=== PATIENT | female | born 1935 | race Caucasian/White ===

== ENCOUNTER → 2016-10-22 | Outpatient (CLI) | payer MEDICARE ==
--- NOTE | 2016-10-22 12:26 | XR ---
EXAMINATION TYPE: XR panorex DATE OF EXAM ORDERED: 10/22/2016 HISTORY: H92.01 Otalgia, right ear. COMPARISON: None. FINDINGS: There are multiple dental amalgams. There have been multiple previous root canals on the l eft. No bony destructive lesion is seen. The temporomandibular joints appear reasonably well-maintain ed. IMPRESSION: 1. EVIDENCE OF PREVIOUS DENTAL WORK. 2. NO ACUTE OSSEOUS LESION.
== END | disposition home or self-care (01) ==
LOC: RADXRMAIN 11:27
PROVIDERS: ATTEND Otolaryngology
DX: H92.09 Otalgia, unspecified ear (principal); M26.609 Unspecified temporomandibular joint disorder, unspecified side
CPT/HCPCS: 70355

== ENCOUNTER → 2018-10-26 | Outpatient (CLI) | payer MEDICARE ==
[2018-10-26 10:48] LABS: HCT 42.8 % (34.0-46.0); HGB 13.9 gm/dL (11.4-16.0); MCH 29.4 pg (25.0-35.0); MCHC 32.4 g/dL (31.0-37.0); MCV 90.6 fL (80.0-100.0); Mean Platelet Volume 6.1; Platelet Count 308 k/uL (150-450); RBC 4.73 m/uL (3.80-5.40); RDW 13.3 % (11.5-15.5)
[2018-10-26 10:50] LABS: Appearance,Urine Clear (Clear); Bilirubin,Urine Negative (Negative); Blood,Urine Negative (Negative); Color,Urine Light Yellow; Glucose,Urine (UA) Negative (Negative); Ketones,Urine Negative (Negative); Leukocyte Esterase,Urine Negative (Negative); Nitrite,Urine Negative (Negative); PH, Urine 7.5 (5.0-8.0); Protein,Urine Negative (Negative); Specific Gravity,Urine 1.007 (1.001-1.035); Urobilinogen,Urine <2.0 mg/dL (<2.0)
[2018-10-26 10:51] LABS: Prothrombin Time 10.6 sec (9.0-12.0)
[2018-10-26 10:57] LABS: ALT 23 U/L (9-52); AST 29 U/L (14-36); African American GFR (CKD) >90 (>60 ml/min/1.73 sqM); Albumin 4.5 g/dL (3.5-5.0); Alkaline Phosphatase 93 U/L (38-126); Anion Gap 8 mmol/L; Blood Urea Nitrogen 12 mg/dL (7-17); Calcium 9.6 mg/dL (8.4-10.2); Carbon Dioxide 29 mmol/L (22-30); Chloride 96 mmol/L (98-107); Glucose 91 mg/dL (74-99); Potassium 3.9 mmol/L (3.5-5.1); Sodium 133 mmol/L (137-145); Total Bilirubin 0.4 mg/dL (0.2-1.3); Total Protein 7.7 g/dL (6.3-8.2)
== END | disposition home or self-care (01) ==
LOC: LABPAT 09:27
PROVIDERS: ATTEND Orthopaedic Surgery
DX: Z01.810 Encounter for preprocedural cardiovascular examination (principal); Z01.812 Encounter for preprocedural laboratory examination; Z79.01 Long term (current) use of anticoagulants
CPT/HCPCS: 36415; 80053; 81003; 85027; 85610; 85730; 87070; 93005

== ENCOUNTER 2018-11-01 11:30 | Inpatient (IN) | payer MEDICARE ==
[2018-10-25 10:54] VITALS: BMI 22.3
[~2018-11-01 11:30] MED LIST: ACETAMINOPHEN TAB 500 MG TAB PO ONE; DEXAMETHASONE SOD PHOSPHATE 10 MG/ML 1 ML VIAL IV ONE; DIAZEPAM 5 MG TAB PO PRN; HYDROcodone/APAP 5-325MG 1 EACH TAB PO PRN; HYDROmorphone 0.5 MG/0.5 ML SYRINGE IVP PRN; LACTATED RINGERS 1,000 ML IV SCH; MAGNESIUM HYDROXIDE 2,400 MG/10 ML CUP PO PRN; MELOXICAM 7.5 MG TAB PO ONE; MIDAZOLAM 2 MG/2 ML VIAL IV PRN; NALOXONE 0.4 MG/ML 1 ML VIAL IV PRN; ONDANSETRON 4 MG/2 ML VIAL IVP ONE; ONDANSETRON 4 MG/2 ML VIAL IVP PRN; ROPIVACAINE 246.25 MG, EPINEPHrine 0.5 MG, KETOROLAC 30 MG, cloNIDine HCL/PF 80 MCG, WA... MISCELLANE ONE; TRANEXAMIC ACID 1,000 MG in SODIUM CHLORIDE 0.9% 100 ML IVPB ONE; ceFAZolin IN SWFI 2 GM/20 ML SYRINGE IVP ONE; hydrOXYzine PAMOATE 25 MG CAP PO PRN
[2018-11-01] MEDS ORDERED: LIDOCAINE 1% 20 ML VIAL (10MG/ML) FOR IV START INTRADERMA ONE (12:00)
[2018-11-01] MEDS ORDERED: HEPARIN SODIUM,PORCINE 10,000 UNIT/ML 1 ML VIAL ONE (13:31)
[2018-11-01] MEDS ORDERED: LIDOCAINE 1% INJ 10MG/ML (20 ML MDV) ONE (13:31)
[2018-11-01] MEDS ORDERED: SODIUM CHLORIDE 0.9% IRRIG 1,000 ML BTL IRRIGATION ONE (13:31)
[2018-11-01] MEDS ORDERED: PROPOFOL 10 MG/ML 20 ML VIAL IV ONE (13:31)
[2018-11-01] MEDS ORDERED: MIDAZOLAM 2 MG/2 ML VIAL ONE (13:31)
[2018-11-01] MEDS ORDERED: ceFAZolin 3,000 MG in SODIUM CHLORIDE 0.9% IRRIGATIO 3,000 ML IRRIGATION ONE (13:35)
[2018-11-01] MEDS ORDERED: LACTATED RINGERS 1,000 ML IV ONE (14:00)
--- NOTE | 2018-11-01 14:59 | FL ---
EXAMINATION TYPE: FL guidance operating room, XR Hip Limited LT DATE OF EXAM: 11/01/2018 CLINICAL HISTORY: Left hip osteoarthritis and pain. TECHNIQUE: Fluoroscopy. Limited intraoperative views left hip. COMPARISON: None. FINDINGS: Fluoroscopic guidance was provided during left hip replacement procedure performed by Dr. Benito. A total of 30 seconds of fluoroscopic time was utilized during the procedure and 2 spot in traoperative images are acquired. Images acquired show metallic hardware from total hip arthroplasty that is satisfactory in position o n single frontal projection. IMPRESSION: As Above.
--- NOTE | 2018-11-01 15:01 | P.OP ---
Date of Procedure: 11/01/18 Preoperative Diagnosis: Severe osteoarthritis left hip Postoperative Diagnosis: Severe osteoarthritis left hip Procedure(s) Performed: Left total hip arthroplasty with a direct anterior approach Implants: Eason and nephew Polarstem size 1 standard Eason [employer] Nephew R3, 3 hole acetabular shell, 48 mm Eason [employer] Nephew reflection 6.5 mm cancellus screw, 20 mm 2 Eason [employer] Nephew R3, XLPE 20 acetabular liner Eason & Nephew Oxinium femoral head 32 mm, -3 All components were press-fit. The articulation is Oxinium on polyethylene. Anesthesia: spinal Surgeon: Skip Benito Senior Bioinformatics Specialist #1: Ivette Javier Estimated Blood Loss (ml): 350 (134 mL returned with Cell Saver) Pathology: other (Femoral head) Condition: stable Disposition: PACU Indications for Procedure: After failure of conservative treatment we discussed the surgical and nonsurgical treatment options at length. Patient wishes to proceed with a total hip arthroplasty with a direct anterior approach. Complications specific to this procedure were discussed at length, including but not limited to infection, leg length discrepancy, dislocation, and nerve injury. Patient is aware of all these complications and informed consent was obtained Operative Findings: The operative findings are consistent with severe osteoarthritis of the left hip Description of Procedure: Patient was seen and evaluated in the preoperative area, consent was reviewed, and the surgical site was marked with a skin marker. Patient was then brought to the operating room and given prophylactic antibiotics intravenously. 1 g of Tranexamic acid was also given. A spinal anesthetic was administered by the anesthesia department. The patient was then placed on the [place] table with the bony prominences well-padded. The hip area was then prepped and draped in usual sterile fashion. A universal timeout was then performed, which confirmed the patient's name, surgical site, ALLERGIES, and procedure being performed. Next the incision site was located at 1 cm distal and 1 cm lateral to the anterior superior iliac spine. The skin and subcutaneous tissues were sharply incised. Incision was carefully dissected down to the fascia overlying the tensor fascia jeff muscle. This fascia was then incised in line with the incision. Next, using blunt finger dissection, the tensor fascia jeff muscle was dissected off its investing fascia. The muscle was then carefully retracted laterally with a cobra retractor over the lateral neck of the femur. Next, the circumflex vessels were identified and cauterized using the AquaMantis device. The anterior hip capsule was then exposed. The capsule was then opened and an inverted T fashion. Cobra retractors were then placed intracapsularly. The proximal femur was then vi sualized. The femoral neck was then osteotomized appropriate level above the lesser trochanter. Small amount of traction was placed with the [place] table. A small wedge of bone was then removed from the remaining femoral head. Next, using a corkscrew femoral head was easily removed from the acetabulum. On gross visual inspection, the femoral head had complete loss of articular cartilage in mult iple periarticular osteophytes. Attention was then turned to the acetabulum. the acetabulum was exposed and any remaining labrum was excised. Sequential reaming of the acetabulum was performed using fluoroscopic guidance. When the appropriate size was reached, a trial was then placed. The position and fit of the trial was checked with fluoroscopy. The trial was then removed. Then, using fluoroscopic guidance, the final implant was impacted at 20 of anteversion and 40 of abduction, and fully seated in the acetabulum. 2 screws were then placed in the acetabulum. Again fluoroscopy was used to check position of the screws. Next, the liner was then impacted, with a 20 elevated liner located in the anterior superior quadrant. Component locking was confirmed. Attention was then directed to the femur. With the aid of the [place] table, the femur was externally rotated to approximately 130, extended, and abducted under the opposite leg. A side hook was then placed under the proximal femur, and the side hook elevator was used to elevate the proximal femur. Retractors were then placed. A capsular release was performed, as well as a release of the conjoined tendon, which afforded excellent visualization of the proximal femur. Next, a box osteotome was used to lateralize the proximal femur. A hand profiler was then used to locate the femoral canal. Sequential broaching was then performed with appropriate size which afforded excellent fixation in the proximal femur. A trial was then placed with appropriate head and neck, and the hip was gently reduced with the aid of the [place] table. Fluoroscopy was then used to check position of the components, as well as to ensure equal leg lengths. The hip was then gently dislocated and the trials were then removed. Final implants were then impacted and the hip was again reduced. Final fluoroscopic x-rays confirmed that the components were in anatomic position, as well as equal leg lengths. The hip was also taken through range of motion, and found to be stable. The hip was then copiously irrigated with antibiotic solution with pulsatile lavage. The hip was then irrigated with Irrisept solution. The soft tissues we re then injected with a ropivacaine solution, which consisted of 246.25 mg of ropivacaine, 0.5 mg of epinephrine, 30 mg of Toradol, 80 g of clonidine, and 48.45 mL of sterile water, for a total of 100 mL of fluid injected. A second dose of 1 g of Tranexamic acid was also given. the fascia was then closed with 2-0 strata fix suture. The subcutaneous tissue was closed with 3-0 Vicryl. The subcuticular tissue was closed with 3-0 strata fix suture. The skin was then closed with Dermabond glue and a sterile silver dressing. The patient was then transferred to the recovery room in stable cond ition. The assistant dean of students MATTHEW Pandya was required due to the complexity of surgery, and the need for skilled surgical lead for positioning, draping, exposure, retraction, and closure of the wound.
--- NOTE | 2018-11-01 15:28 | XR ---
EXAMINATION TYPE: XR Hip Limited LT DATE OF EXAM: 11/01/2018 CLINICAL HISTORY: Left hip pain and osteoarthritis. TECHNIQUE: Single AP portable view of left hip is obtained immediately postoperatively. COMPARISON: None. FINDINGS: Metallic hardware from left hip arthroplasty is seen and appears satisfactory in alignment and position. There is evidence of recent surgery with subcutaneous gas noted laterally. IMPRESSION: Metallic hardware from left hip arthroplasty is satisfactory in position.
[2018-11-01] MEDS: SODIUM CHLORIDE 0.9% 1,000 ML IV SCH (17:15)
[2018-11-01] MEDS ORDERED: hydrALAZINE HCL 25 MG TAB PO STA (20:50)
[2018-11-01] MEDS ORDERED: SENNOSIDES-DOCUSATE SODIUM 1 EACH TAB PO SCH (21:00)
[2018-11-01] MEDS: ASPIRIN 325 MG TAB PO SCH (21:25)
[2018-11-01] MEDS: HYDROcodone/APAP 5-325MG 1 EACH TAB PO PRN (21:29)
[2018-11-02] MEDS: ceFAZolin IN SWFI 2 GM/20 ML SYRINGE IVP SCH ×2 (00:05→05:30)
[2018-11-02] MEDS: SODIUM CHLORIDE 0.9% 1,000 ML IV SCH (02:12)
[2018-11-02 07:59] LABS: Basophils % (A) 0 %; Eosinophils # (A) 0.1 k/uL (0-0.7); Eosinophils % (A) 1 %; HCT 35.7 % (34.0-46.0); Lymphocytes % (A) 25 %; MCH 29.8 pg (25.0-35.0); MCHC 33.5 g/dL (31.0-37.0); MCV 89.1 fL (80.0-100.0); Mean Platelet Volume 6.7; Monocytes # (A) 0.5 k/uL (0-1.0); Monocytes % (A) 6 %; Neutrophils # (A) 5.4 k/uL (1.3-7.7); Neutrophils % (A) 66 %; Platelet Count 204 k/uL (150-450); RBC 4.01 m/uL (3.80-5.40); WBC 8.1 k/uL (3.8-10.6)
[2018-11-02 08:31] VITALS: BP 159/64; PULSE 70; RESP 16; TEMP 98.2
[2018-11-02] MEDS ORDERED: ANASTROZOLE 1 MG TAB PO SCH (09:00)
[2018-11-02] MEDS ORDERED: NON-FORMULARY DRUG (Turmeric Root Extract [Turmeric] 500 MG) PO SCH (09:00)
[2018-11-02] MEDS ORDERED: NON-FORMULARY DRUG (Magnesium Oxide [Phillips] 500 MG) PO SCH (09:00)
[2018-11-02] MEDS ORDERED: BISOPROLOL-HCTZ 2.5-6.25 MG 1 EACH TAB PO SCH (09:00)
[2018-11-02] MEDS ORDERED: MELOXICAM 7.5 MG TAB PO SCH (09:00)
[2018-11-02] MEDS: ASPIRIN 325 MG TAB PO SCH (09:10)
[2018-11-02] MEDS: HYDROcodone/APAP 5-325MG 1 EACH TAB PO PRN (09:11)
--- NOTE | 2018-11-02 09:28 | P.DS ---
Providers Date of admission: 11/01/18 11:30 Expected date of discharge: 11/02/18 Attending physician: Skip Benito Consults: 11/01/18 09:30 Consult Physician Routine Consulting Provider: Jabier Benjamin Reason/Comments: medical management Do you want consulting provider notified?: Yes Primary care physician: Pravin Stafford - Discharge Diagnosis(es) (1) Osteoarthritis of left hip Current Visit: Yes Status: Acute (2) Status post total hip replacement, left Current Visit: Yes Status: Acute Hospital Course: This is a 83-year-old female with known history of degenerative arthritis of the left hip. The patient presents for evaluation. After discussion and consideration patient elects to proceed with total hip arthroplasty. The patient is seen preoperatively by Dr. Benito and medically cleared for surgery by their primary care physician. Patient is admitted to [facility] on 11/01/2018 for total hip arthroplasty. The procedures performed without complication or sequelae. The patient is doing well postoperatively. Labs and vital signs are stable on day of discharge. On day of discharge patient's hip incision is healing well. There is minimal erythema. There is no drainage noted at this time. There is minimal soft tissue swelling to the hip and thigh. Patient has full foot and ankle motion without difficulty or pain. Calf is soft and nontender to palpation. N eurovascular status to the left lower extremity is intact. Patient is discharged home in good condition. Opioid start talking form is reviewed and signed at patient bedside. Please see med rec for accurate list of home medications. Plan - Discharge Summary Discharge Rx Participant: No New Discharge Prescriptions: New Aspirin 325 mg PO BID tab Aspirin 325 mg PO BID #60 tab HYDROcodone/APAP 5-325MG [[place] 5-325] 1 - 2 tab PO Q6HR PRN #56 tab PRN Reason: Pain Sennosides [Senokot] 1 tab PO BID #60 tablet Continue Anastrozole [Arimidex] 1 mg PO DAILY Bisoprol/Hydrochlorothiazide [Ziac 2.5-6.25 MG] 1 tab PO DAILY Ibuprofen [Advil] 600 mg PO Q8HR PRN PRN Reason: Pain Turmeric Root Extract [Turmeric] 500 mg PO DAILY Acetaminophen [Tylenol Extra Strength] 1,000 mg PO Q6HR PRN PRN Reason: Pain Stool Softner 1 tab PO DAILY Magnesium Oxide [Fatima] 500 mg PO DAILY Discharge Medication List Acetaminophen [Tylenol Extra Strength] 1,000 mg PO Q6HR PRN 10/25/18 [History] Anastrozole [Arimidex] 1 mg PO DAILY 10/25/18 [History] Bisoprol/Hydrochlorothiazide [Ziac 2.5-6.25 MG] 1 tab PO DAILY 10/25/18 [History] Ibuprofen [Advil] 600 mg PO Q8HR PRN 10/25/18 [History] Magnesium Oxide [Fatima] 500 mg PO DAILY 10/25/18 [History] Stool Softner 1 tab PO DAILY 10/25/18 [History] Turmeric Root Extract [Turmeric] 500 mg PO DAILY 10/25/18 [History] Aspirin 325 mg PO BID tab 11/02/18 [Rx] Aspirin 325 mg PO BID #60 tab 11/02/18 [Rx] HYDROcodone/APAP 5-325MG [[place] 5-325] 1 - 2 tab PO Q6HR PRN #56 tab 11/02/18 [Rx] Sennosides [Senokot] 1 tab PO BID #60 tablet 11/02/18 [Rx] Follow up Appointment(s)/Referral(s): Skip Benito DO [Doctor of Osteopathic Medicine] - 11/15/18 2:00 pm Pravin Stafford MD [Primary Care Provider] - 1 Week Activity/Diet/Wound Care/Special Instructions: Weightbearing as tolerated with walker. Leave dressing intact. Dressing may be removed by home care nurse or by patient in 10 days. May shower with dressing on. Please follow-up with [facility] in 2 weeks and call with any questions or concerns, . Discharge Disposition: HOME WITH HOME HEALTH SERVICES
--- NOTE | 2018-11-02 14:32 | P.CONS ---
History of Present Illness - Reason for Consult Consult date: 11/02/18 Medical management - History of Present Illness This is an 83-year-old female patient of Dr. Pravin Stafford with past medical history of hypertension, hyperlipidemia, breast cancer status post right breast lumpectomy, osteoarthritis. Patient gives history of having trouble with her left knee due to osteoarthritis for several years and gradually worsening. She has been brought in under the care of Dr. Skip Benito status post left total hip arthroplasty. Patient is seen in post op day #1. Surgery was an anterior approach. She states that her pain is currently well controlled. She does complain of a backache and some numbness to her left thigh. Patient did have elevated blood pressure readings last night and hydralazine oral 1 was administered. This morning blood pressure is 159/64. White count 8.1 and hemoglobin 12. Patient is scheduled to work with physical therapy and if doing well will be discharged home today. We will not send the patient home with new blood pressure medication. Review of Systems All systems: negative Constitutional: Denies chills, Denies fatigue, Denies fever, Denies lethargy, Denies malaise, Denies poor appetite, Denies weight loss Eyes: denies blurred vision, denies pain Ears, nose, mouth and throat: Denies dysphagia, Denies headache, Denies nasal congestion, Denies nasal discharge, Denies sore throat, Denies vertigo Cardiovascular: Reports high blood pressure, Denies chest pain, Denies decreased exercise tolerance, Denies dyspnea on exertion, Denies edema, Denies leg edema, Denies lightheadedness, Denies orthopnea, Denies shortness of breath, Denies syncope Respiratory: Denies cough, Denies cough with sputum, Denies dyspnea, Denies excessive sputum, Denies hemoptysis, Denies home oxygen, Denies wheezing Gastrointestinal: Denies abdominal pain, Denies diarrhea, Denies loss of appetite, Denies nausea, Denies vomiting Genitourinary: Denies dysuria, Denies hematuria, Denies urgency, Denies urinary frequency Musculoskeletal: Denies frequent falls, Denies gait dysfunction, Denies muscle weakness, Denies myalgias Integumentary: Reports wounds, Denies pruritus, Denies rash Neurological: Denies aphasia, Denies change in mentation, Denies change in speech, Denies numbness, Denies seizures, Denies syncope, Denies weakness Psychiatric: Denies anxiety, Denies depression Endocrine: Denies fatigue, Denies weight change Past Medical History Past Medical History: Cancer, Hyperlipidemia, Hypertension, Osteoarthritis (OA) Additional Past Medical History / Comment(s): hx migraines, occ. palpitations, hx ulcer, hemorrhoids, breast cancer, surgery left eye for retina pucker History of Any Multi-Drug Resistant Organisms: None Reported Past Surgical History: Breast Surgery, Heart Catheterization, Hernia Repair, Hysterectomy, Tonsillectomy Additional Past Surgical History / Comment(s): rt breast lumpectomy, og cataracts, ANTERIOR TOTAL LEFT HIP ARTHROPLASTY 11-01-2018 Past Anesthesia/Blood Transfusion Reactions: Motion Sickness, Postoperative Nausea & Vomiting (PONV) Past Psychological History: No Psychological Hx Reported Smoking Status: Former smoker Past Alcohol Use History: None Reported Additional Past Alcohol Use History / Comment(s): quit smoking 1979, smoked for 25 yrs, >1 PPD. No illicit drug use, no alcohol use. Patient worked as a homemaker. She is currently and daughter is visiting her in the immediate postoperative time. Past Drug Use History: None Reported - Past Family History Mother Family Medical History: Cancer Additional Family Medical History / Comment(s): Mother in 83 from cancer. Father Additional Family Medical History / Comment(s): Father at age 73 from coronary artery disease with history of emphysema. Brother(s) Additional Family Medical History / Comment(s): The patient has a total of 5 siblings. One brother has from pancreatic cancer and one sisters from ovarian cancer. Patient has 2 children with no major medical problems. Medications and Allergies Home Medications Medication Instructions Recorded Confirmed Type Acetaminophen [Tylenol Extra 1,000 mg PO Q6HR PRN 10/25/18 11/01/18 History Strength] Anastrozole [Arimidex] 1 mg PO DAILY 10/25/18 11/01/18 History Bisoprol/Hydrochlorothiazide [Ziac 1 tab PO DAILY 10/25/18 11/01/18 History 2.5-6.25 MG] Magnesium Oxide [Fatima] 500 mg PO DAILY 10/25/18 11/01/18 History Stool Softner 1 tab PO DAILY 10/25/18 11/01/18 History Turmeric Root Extract [Turmeric] 500 mg PO DAILY 10/25/18 11/01/18 History Aspirin 325 mg PO BID tab 11/02/18 Rx Aspirin 325 mg PO BID #60 tab 11/02/18 Rx HYDROcodone/APAP 5-325MG [[place] 1 - 2 tab PO Q6HR PRN #56 tab 11/02/18 Rx 5-325] Sennosides [Senokot] 1 tab PO BID #60 tablet 11/02/18 Rx Allergies Allergy/AdvReac Type Severity Reaction Status Date / Time carbenicillin Allergy Itching Verified 11/01/18 16:37 [From [facility]] Physical Exam Vitals: Vital Signs Temp Pulse Pulse Pulse Pulse Resp BP 11/02/18 07:00 98.2 F 70 16 11/02/18 01:03 97.8 F 65 17 115/40 11/02/18 00:08 18 110/50 11/01/18 21:52 124/65 11/01/18 19:42 98.0 F 66 18 164/56 11/01/18 18:45 82 144/79 11/01/18 18:30 83 144/78 11/01/18 16:00 68 172/73 11/01/18 15:50 57 L 16 145/65 11/01/18 15:45 68 175/82 11/01/18 15:35 73 16 159/66 11/01/18 15:30 62 176/80 11/01/18 15:20 67 16 11/01/18 15:15 71 142/72 11/01/18 15:05 70 16 131/58 11/01/18 15:00 61 155/69 11/01/18 14:45 63 176/69 11/01/18 14:30 97.3 F L 66 12 178/74 11/01/18 11:48 98.3 F 68 16 BP BP Pulse Ox 11/02/18 07:00 159/64 93 L 11/02/18 01:03 91 L 11/02/18 00:08 11/01/18 21:52 11/01/18 19:42 93 L 11/01/18 18:45 11/01/18 18:30 11/01/18 16:00 11/01/18 15:50 95 11/01/18 15:45 11/01/18 15:35 96 11/01/18 15:30 06/17/19 15:20 145/64 98 11/01/18 15:15 11/01/18 15:05 98 11/01/18 15:00 11/01/18 14:45 11/01/18 14:30 98 11/01/18 11:48 120/74 95 Intake and Output 11/01/18 11/02/18 11/02/18 22:59 06:59 14:59 Intake Total 0 520 Balance 0 520 Intake: IV 0 Intake, IV Titration 520 Amount Sodium Chloride 0.9% 1, 520 000 ml @ 65 mls/hr IV . [id number] SILVINO Rx#:[id number] Other: # Voids 1 2 Gen: This is an 83-year-old female. She is resting in a recliner appears to be in no acute distress. HEENT: Head is atraumatic, normocephalic. Pupils equal, round. Sclerae is anicteric. NECK: Supple. No JVD. No lymphadenopathy. No thyromegaly. LUNGS: Clear to auscultation. No wheezes or rhonchi. No intercostal retractions. HEART: Regular rate and rhythm. No murmur. ABDOMEN: Soft. Bowel sounds are present. No masses. No tenderness. EXTREMITIES: No pedal edema. No calf tenderness. Equal strength to bilateral lower extremities. Dorsalis pedis +2 bilaterally. On to left hip shows no signs of significant drainage, redness, or bleeding. NEUROLOGICAL: Patient is awake, alert and oriented x3. Cranial nerves 2 through 12 are grossly intact. Results CBC & Chem 7: 11/02/18 07:07 Assessment and Plan Plan: 1. Osteoarthritis status post left total hip arthroplasty. Patient is on aspirin 325 mg twice daily for DVT prophylaxis. Continue current pain management, PT OT. Patient is tentatively scheduled for discharge home today. 2. Hypertension. Continue Ziac 1 tablet daily. 3. Glaucoma. Continue eyedrops. 4. Hyperlipidemia. Discharge plan: home Impression and plan of care have been directed as dictated by the signing physician. Sandrine Mae nurse practitioner acting as scribe for signing physician.
== END 2018-11-02 11:30 | disposition home health service (06) | DRG 470 ==
LOC: 2CATHESU 11:30 → 4SSUR 15:05
PROVIDERS: ADMIT Orthopaedic Surgery; ATTEND Orthopaedic Surgery
PROC: 30233N0 Transfusion of Autologous Red Blood Cells into Peripheral Vein, Percutaneous Approach (ICD-10-PCS; 2018-11-01)
PROC: 0SRB06A Replacement of Left Hip Joint with Oxidized Zirconium on Polyethylene Synthetic Substitute, Uncemented, Open Approach (ICD-10-PCS; principal; 2018-11-01 12:30)
DX: M16.12 Unilateral primary osteoarthritis, left hip (principal); I10 Essential (primary) hypertension; E78.2 Mixed hyperlipidemia; G43.909 Migraine, unspecified, not intractable, without status migrainosus; K64.9 Unspecified hemorrhoids; F41.9 Anxiety disorder, unspecified; M54.12 Radiculopathy, cervical region; M54.16 Radiculopathy, lumbar region; H40.9 Unspecified glaucoma; Z79.811 Long term (current) use of aromatase inhibitors; Z79.82 Long term (current) use of aspirin; Z79.899 Other long term (current) drug therapy; Z90.710 Acquired absence of both cervix and uterus; Z87.891 Personal history of nicotine dependence; Z85.3 Personal history of malignant neoplasm of breast; Z98.42 Cataract extraction status, left eye; Z98.41 Cataract extraction status, right eye; Z96.1 Presence of intraocular lens; Z98.51 Tubal ligation status; Z88.1 Allergy status to other antibiotic agents; Z80.0 Family history of malignant neoplasm of digestive organs; Z80.41 Family history of malignant neoplasm of ovary; Z82.49 Family history of ischemic heart disease and other diseases of the circulatory system; Z82.5 Family history of asthma and other chronic lower respiratory diseases; Z80.3 Family history of malignant neoplasm of breast
CPT/HCPCS: 73501; 85025; 86850; 86891; 86900; 86901

== ENCOUNTER 2020-11-14 18:03 | Emergency (ER) | payer MEDICARE ==
[2020-11-14 18:31] VITALS: TEMP 98
--- NOTE | 2020-11-14 19:40 | ED ---
Fall HPI - General Chief Complaint: Fall Stated Complaint: Fall Time Seen by Provider: 11/14/20 18:39 Source: patient Mode of arrival: ambulatory - History of Present Illness Initial Comments: Patient is a pleasant 85-year-old female who presents the ER today for evaluation of right shoulder and arm pain, patient reports that earlier today she was walking when she tripped over the edging in her yard. She fell forward, onto an outstretched right hand. She has pain in her right shoulder. Patient does report she has chronic pain in the shoulder she was seen by orthopedics kiah larios and had a steroid injection into the shoulder which did not improve her pain. Patient states she may have struck her head on the dirt but did not lose consciousness she has no signs of external head trauma. - Related Data Home Medications Medication Instructions Recorded Confirmed Bisoprol/Hydrochlorothiazide [Ziac 1 tab PO DAILY 10/25/18 11/14/20 2.5-6.25 MG] Cholecalciferol [Vitamin D3 (25 25 mcg PO DAILY 11/14/20 11/14/20 Mcg = 1000 Iu)] Ibuprofen [Motrin Ib] 600 mg PO Q8H PRN 11/14/20 11/14/20 Allergies Allergy/AdvReac Type Severity Reaction Status Date / Time carbenicillin Allergy Itching Verified 11/14/20 19:39 [From [facility]] Review of Systems ROS Statement: Those systems with pertinent positive or pertinent negative responses have been documented in the HPI. ROS Other: All systems not noted in ROS Statement are negative. Past Medical History Past Medical History: Cancer, Hyperlipidemia, Hypertension, Osteoarthritis (OA) Additional Past Medical History / Comment(s): hx migraines, occ. palpitations, hx ulcer, hemorrhoids, breast cancer, surgery left eye for retina pucker History of Any Multi-Drug Resistant Organisms: None Reported Past Surgical History: Breast Surgery, Heart Catheterization, Hernia Repair, Hysterectomy, Tonsillectomy Additional Past Surgical History / Comment(s): rt breast lumpectomy, og cataracts, ANTERIOR TOTAL LEFT HIP ARTHROPLASTY 11-01-2018 Past Anesthesia/Blood Transfusion Reactions: Motion Sickness, Postoperative Nausea & Vomiting (PONV) Past Psychological History: No Psychological Hx Reported Smoking Status: Never smoker Past Alcohol Use History: None Reported Past Drug Use History: None Reported - Past Family History Mother Family Medical History: Cancer Additional Family Medical History / Comment(s): Mother in 83 from cancer. Father Additional Family Medical History / Comment(s): Father at age 73 from coronary artery disease with history of emphysema. Brother(s) Additional Family Medical History / Comment(s): The patient has a total of 5 siblings. One brother has from pancreatic cancer and one sisters from ovarian cancer. Patient has 2 children with no major medical problems. General Exam - General Exam Comments Initial Comments: Physical Exam GENERAL: Patient is well-developed and well-nourished. Patient is nontoxic and well-hydrated and is in no distress. HENT: Normocephalic, Atraumatic. EYES: PERRL, EOMI PULMONARY: Unlabored respirations. CARDIOVASCULAR: RRR Warm and well perfused extremities ABDOMEN: Non-distended SKIN: No rashes or bruising : Deferred NEUROLOGIC: Alert and oriented Normal speech MUSCULOSKELETAL: Decreased range of motion of the right shoulder secondary to pain PSYCHIATRIC: No SI/HI Limitations: no limitations Course Vital Signs 11/14/20 11/14/20 18:30 20:23 Temperature 98 F Pulse Rate 71 64 Respiratory 16 18 Rate Blood Pressure 171/71 160/78 O2 Sat by Pulse 95 91 L Oximetry Medical Decision Making - Medical Decision Making Patient was seen x-rays are obtained there are no acute fractures patient was notified of these findings comfortable plan for discharge home with supportive care continued outpatient follow-up with orthopedics for chronic arm pain Disposition Clinical Impression: Fall Disposition: HOME SELF-CARE Condition: Stable Instructions (If sedation given, give patient instructions): Fall Prevention (ED) Is patient prescribed a controlled substance at d/c from ED?: No Referrals: Pravin Stafford MD [Primary Care Provider] - 1-2 days Daryl Benito DO [Doctor of Osteopathic Medicine] - 1-2 days
--- NOTE | 2020-11-14 20:11 | XR ---
Result: Clinical History: Pain status post fall. Comparison: None available. Technique: 3 views of the right shoulder. 2 views of the right humerus. Findings: The bone mineralization is appropriate for age. No acute fracture or dislocation of the right shoulder or humerus is seen. There is mild to moderate osteoarthritis of the acromioclavicular joint. Subcentimeter calcific density adjacent to the greate r tuberosity, suggestive of rotator cuff calcific tendinopathy. Impression: No acute osseous abnormality of the right shoulder or humerus.
[2020-11-14 20:25] VITALS: BP 160/78; PULSE 64; RESP 18
== END 2020-11-14 20:41 | disposition home or self-care (01) ==
LOC: EC 18:03
DX: M25.511 Pain in right shoulder (principal); I10 Essential (primary) hypertension; Z88.0 Allergy status to penicillin; Z79.899 Other long term (current) drug therapy; W01.0XXA Fall on same level from slipping, tripping and stumbling without subsequent striking against object, initial encounter; Y93.01 Activity, walking, marching and hiking
CPT/HCPCS: 99283

== ENCOUNTER 2024-05-05 11:52 | Emergency (ER) | payer MEDICARE ==
--- NOTE | 2024-05-05 13:07 | XR ---
EXAMINATION TYPE: XR chest 2V DATE OF EXAM: 05/05/2024 12:52 PM COMPARISON: Chest radiographs from TECHNIQUE: XR chest 2V . CLINICAL INDICATION:Female, 88 years old with history of altered mental status; FINDINGS: Lungs/Pleura: No pneumothorax. Elevation of the right hemidiaphragm. No pleural effusion. Right basil ar airspace opacity. Pulmonary vascularity: Unremarkable. Heart/mediastinum: Cardiomediastinal silhouette is enlarged. Atherosclerotic calcifications are seen in the aorta. Musculoskeletal: Multiple level degenerative disc disease changes seen throughout the spine. IMPRESSION: Right basilar airspace opacity concerning for possible pneumonia with underlying mass not excluded. C ontinued follow-up is recommended. [facility], , 05/05/2024 1:05 PM
[2024-05-05 13:11] LABS: Basophils % (A) 0 %; Eosinophils # (A) 0.1 k/uL (0-0.7); Eosinophils % (A) 2 %; HCT 41.7 % (34.0-46.0); HGB 13.7 gm/dL (11.4-16.0); Lymphocytes # (A) 2.3 k/uL (1.0-4.8); Lymphocytes % (A) 32 %; MCH 29.4 pg (25.0-35.0); MCHC 32.7 g/dL (31.0-37.0); MCV 89.7 fL (80.0-100.0); Mean Platelet Volume 6.5; Monocytes # (A) 0.3 k/uL (0-1.0); Monocytes % (A) 5 %; Neutrophils # (A) 4.2 k/uL (1.3-7.7); Neutrophils % (A) 59 %; Platelet Count 271 k/uL (150-450); RBC 4.65 m/uL (3.80-5.40); RDW 13.4 % (11.5-15.5); WBC 7.1 k/uL (3.8-10.6)
[2024-05-05 13:21] LABS: INR 0.9 (<1.2); Partial Thromboplastin Time 23.6 sec (22.0-30.0); Prothrombin Time 10.6 sec (10.0-12.5)
[2024-05-05 13:25] LABS: ALT 14 U/L (4-34); AST 24 U/L (14-36); African American GFR (CKD) >90 (>60 ml/min/1.73 sqM); Albumin 4.4 g/dL (3.5-5.0); Alkaline Phosphatase 96 U/L (38-126); Anion Gap 7 mmol/L; Blood Urea Nitrogen 17 mg/dL (7-17); Calcium 9.8 mg/dL (8.4-10.2); Carbon Dioxide 27 mmol/L (22-30); Chloride 101 mmol/L (98-107); Creatine Kinase 96 U/L (30-135); Glucose 103 mg/dL (74-99); Non-African American GFR(CKD) 80 (>60 ml/min/1.73 sqM); Potassium 4.1 mmol/L (3.5-5.1); Sodium 135 mmol/L (137-145); Total Bilirubin 0.5 mg/dL (0.2-1.3); Total Protein 7.6 g/dL (6.3-8.2)
--- NOTE | 2024-05-05 14:05 | ED ---
General Adult HPI - General Chief complaint: Neuro Symptoms/Deficit Stated complaint: Face Numbness Time Seen by Provider: 05/05/24 12:05 Source: patient, family Mode of arrival: ambulatory Limitations: no limitations - History of Present Illness Initial comments: 88-year-old female presents to the emergency department for 1 week of slurred sp eech, right hand weakness and difficulty swallowing. States that over the past week she has had issues writing. Daughter states that she has very nice penmanship but the writing does not look at all like her mother's. She has had some slurred speech and occasional expressive aphasia. Denies balance issues. No weakness in her leg. Does admit to a headache graded 2 out of 10. Patient has a history of hypertension. States she has been taking her blood pressure medications as instructed. No nausea or vomiting. No history of strokes. No other alleviating, precipitating or modifying factors - Related Data Home Medications Medication Instructions Recorded Confirmed Bisoprolol/Hydrochlorothiazide 1 tab PO DAILY 10/25/18 11/14/20 [Ziac 2.5-6.25 MG] Cholecalciferol [Vitamin D3 (25 25 mcg PO DAILY 11/14/20 11/14/20 Mcg = 1000 Iu)] Ibuprofen [Motrin Ib] 600 mg PO Q8H PRN 11/14/20 11/14/20 Allergies Allergy/AdvReac Type Severity Reaction Status Date / Time carbenicillin Allergy Itching Verified 11/14/20 19:39 [From Geocillin] Review of Systems ROS Statement: Those systems with pertinent positive or pertinent negative responses have been documented in the HPI. ROS Other: All systems not noted in ROS Statement are negative. Past Medical History Past Medical History: Cancer, Hyperlipidemia, Hypertension, Osteoarthritis (OA) Additional Past Medical History / Comment(s): hx migraines, occ. palpitations, hx ulcer, hemorrhoids, breast cancer, surgery left eye for retina pucker History of Any Multi-Drug Resistant Organisms: None Reported Past Surgical History: Breast Surgery, Heart Catheterization, Hernia Repair, Hysterectomy, Tonsillectomy Additional Past Surgical History / Comment(s): rt breast lumpectomy, og cataracts, ANTERIOR TOTAL LEFT HIP ARTHROPLASTY 11-01-2018 Past Anesthesia/Blood Transfusion Reactions: Motion Sickness, Postoperative Nausea & Vomiting (PONV) Past Psychological History: No Psychological Hx Reported Smoking Status: Never smoker Past Alcohol Use History: None Reported Past Drug Use History: None Reported - Past Family History Mother Family Medical History: Cancer Additional Family Medical History / Comment(s): Mother in 83 from cancer. Father Additional Family Medical History / Comment(s): Father at age 73 from coronary artery disease with history of emphysema. Brother(s) Additional Family Medical History / Comment(s): The patient has a total of 5 siblings. One brother has from pancreatic cancer and one sisters from ovarian cancer. Patient has 2 children with no major medical problems. General Exam Limitations: no limitations General appearance: alert, in no apparent distress Head exam: Present: atraumatic, normocephalic, normal inspection Eye exam: Present: normal appearance, PERRL, EOMI. Absent: scleral icterus, conjunctival injection, periorbital swelling ENT exam: Present: mucous membranes moist, other (Flattening of the right nasolabial fold) Neck exam: Present: normal inspection. Absent: tenderness, meningismus, lymphadenopathy Respiratory exam: Present: normal lung sounds bilaterally. Absent: respiratory distress, wheezes, rales, rhonchi, stridor Cardiovascular Exam: Present: regular rate, normal rhythm, normal heart sounds. Absent: systolic murmur, diastolic murmur, rubs, gallop, clicks GI/Abdominal exam: Present: soft, normal bowel sounds. Absent: distended, tenderness, guarding, rebound, rigid Extremities exam: Present: normal inspection, full ROM, normal capillary refill. Absent: tenderness, pedal edema, joint swelling, calf tenderness Back exam: Present: normal inspection Neurological exam: Present: alert, oriented X3, CN II-XII intact, other (Mild dysarthria) Psychiatric exam: Present: normal affect, normal mood Skin exam: Present: warm, dry, intact, normal color. Absent: rash Course Vital Signs 05/05/24 05/05/24 05/05/24 11:53 13:08 13:39 Temperature 97.8 F Pulse Rate 71 57 L Respiratory 20 61 H 16 Rate Blood Pressure 225/85 187/74 171/69 O2 Sat by Pulse 96 97 97 Oximetry 05/05/24 05/05/24 14:15 14:31 Temperature Pulse Rate 77 73 Respiratory 18 16 Rate Blood Pressure 160/63 148/61 O2 Sat by Pulse Oximetry - Reevaluation(s) Reevaluation #1: Patient accepted by Dr. Clarke 05/05/24 14:45 Medical Decision Making - Medical Decision Making Was pt. sent in by a medical professional or institution (, PA, [employer], urgent care, hospital, or shelter...) When possible be specific @ -No Did you speak to anyone other than the patient for history (EMS, parent, family, police, friend...)? What history was obtained from this source @ -Spoke with the daughter for history Did you review nursing and triage notes (agree or disagree)? Why? @ -I reviewed and agree with nursing and triage notes Were old charts reviewed (outside hosp., previous admission, EMS record, old EKG, old radiological studies, urgent care reports/EKG's, shelter records)? Report findings @ -No old charts were reviewed Differential Diagnosis (chest pain, altered mental status, abdominal pain women, abdominal pain men, vaginal bleeding, weakness, fever, dyspnea, syncope, headache, dizziness, GI bleed, back pain, seizure, CVA, palpatations, mental health, musculoskeletal)? @ -Differential CVA Ischemic stroke, hemorrhagic stroke, brain tumor, atypical migraine, Wernicke's encephalopathy, seizure, multiple sclerosis, meningitis, encephalitis, hypoglycemia, Guillain-Zepeda, electrolytes disturbance, myasthenia gravis.... This is not meant to be an all-inclusive list EKG interpreted by me (3pts min.). @ -Yes and demonstrates sinus rhythm with a rate of 70. CT interval 146. QRS 98. QTc of 431. No acute ST segment elevations or depressions X-rays interpreted by me (1pt min.). @ -yes and demonstrates right basilar infiltrate CT interpreted by me (1pt min.). @ -CT demonstrates acute patchy region of hemorrhage within the superior right cerebellum with surrounding edema. Additional questionable region within the midline cerebellum. Causes effacement of the fourth ventricle. No hydrocephalus. Stroke versus underlying neoplasm. Focal region of hypodensity within the right parietal lobe with cortical hyperdensity suggesting blood products and/or laminar necrosis. U/S interpreted by me (1pt. min.). @ -None done What testing was considered but not performed or refused? (CT, X-rays, U/S, labs)? Why? @ -None What meds were considered but not given or refused? Why? @ -None Did you discuss the management of the patient with other professionals (professionals i.e. , PA, [employer], lab, RT, psych nurse, psychiatric social worker supervisor, glassware selector, teacher, loan servicing officer, case therapist)? Give summary @ -Spoke with the stroke team at [facility]. Dr. Clarke does accept the patient to [facility] Was smoking cessation discussed for >3mins.? @ -No Was critical care preformed (if so, how long)? @ -yes 40 minutes for identification of intracranial bleed Were there social determinants of health that impacted care today? How? (Homelessness, low income, unemployed, alcoholism, drug addiction, transportation, low edu. Level, literacy, decrease access to med. care, long term, rehab)? @ -No Was there de-escalation of care discussed even if they declined (Discuss DNR or withdrawal of care, Hospice)? DNR status @ -No What co-morbidities impacted this encounter? (DM, HTN, Smoking, COPD, CAD, Cancer, CVA, ARF, Chemo, Hep., AIDS, mental health diagnosis, sleep apnea, morbid obesity)? @ -hypertension Was patient admitted / discharged? Hospital course, mention meds given and route, prescriptions, significant lab abnormalities, going to OR and other pertinent info. @ -Upon arrival patient seen and evaluated in room 14. Thorough history and physical exam was performed. IV was established. Laboratory studies are co nducted. CT and CTA was performed. CT demonstrates a right cerebellar bleed. No signs of aneurysm. I did discuss the case with the neuro team at [facility]. Dr. Clarke does accept the patient as a transfer. COBRA forms are signed. Patient will be transferred in stable condition with a guarded prognosis Undiagnosed new problem with uncertain prognosis? @ -yes Drug Therapy requiring intensive monitoring for toxicity (Heparin, Nitro, Insulin, Cardizem)? @ -Cardene Were any procedures done? @ -No Diagnosis/symptom? @ -Acute dysarthria, subacute cerebellar bleed Acute, or Chronic, or Acute on Chronic? @ -acute Uncomplicated (without systemic symptoms) or Complicated (systemic symptoms)? @ -Complicated Side effects of treatment? @ -No Exacerbation, Progression, or Severe Exacerbation? @ -No Poses a threat to life or bodily function? How? (Chest pain, [place], [place], pneumonia, PE, COPD, DKA, ARF, appy, cholecystitis, CVA, Diverticulitis, Homicidal, Suicidal, threat to staff... and all critical care pts) @ -Yes as patient has intracranial bleed - Lab Data Result diagrams: 05/05/24 13:05 05/05/24 13:05 Lab Results 05/05/24 05/05/24 05/05/24 Range/Units 13:05 13:05 13:05 WBC 7.1 (3.8-10.6) k/uL RBC 4.65 (3.80-5.40) m/uL Hgb 13.7 (11.4-16.0) gm/dL Hct 41.7 (34.0-46.0) % MCV 89.7 (80.0-100.0) fL MCH 29.4 (25.0-35.0) pg MCHC 32.7 (31.0-37.0) g/dL RDW 13.4 (11.5-15.5) % Plt Count 271 (150-450) k/uL MPV 6.5 Neutrophils % 59 % Lymphocytes % 32 % Monocytes % 5 % Eosinophils % 2 % Basophils % 0 % Neutrophils # 4.2 (1.3-7.7) k/uL Lymphocytes # 2.3 (1.0-4.8) k/uL Monocytes # 0.3 (0-1.0) k/uL Eosinophils # 0.1 (0-0.7) k/uL Basophils # 0.0 (0-0.2) k/uL PT 10.6 (10.0-12.5) sec INR 0.9 (<1.2) APTT 23.6 (22.0-30.0) sec Sodium 135 L (137-145) mmol/L Potassium 4.1 (3.5-5.1) mmol/L Chloride 101 (98-107) mmol/L Carbon Dioxide 27 (22-30) mmol/L Anion Gap 7 mmol/L BUN 17 (7-17) mg/dL Creatinine 0.65 (0.52-1.04) mg/dL Est GFR (CKD-EPI)AfAm >90 (>60 ml/min/1.73 sqM) Est GFR (CKD-EPI)NonAf 80 (>60 ml/min/1.73 sqM) Glucose 103 H (74-99) mg/dL Calcium 9.8 (8.4-10.2) mg/dL Total Bilirubin 0.5 (0.2-1.3) mg/dL AST 24 (14-36) U/L ALT 14 (4-34) U/L Alkaline Phosphatase 96 (38-126) U/L Creatine Kinase 96 (30-135) U/L Troponin I (0.000-0.034) ng/mL Total Protein 7.6 (6.3-8.2) g/dL Albumin 4.4 (3.5-5.0) g/dL Urine Color Urine Appearance (Clear) Urine pH (5.0-8.0) Ur Specific [place] (1.001-1.035) Urine Protein (Negative) Urine Glucose (UA) (Negative) Urine Ketones (Negative) Urine Blood (Negative) Urine Nitrite (Negative) Urine Bilirubin (Negative) Urine Urobilinogen (<2.0) mg/dL Ur Leukocyte Esterase (Negative) Urine RBC (0-5) /hpf Urine WBC (0-5) /hpf Ur Squamous Epith Cells (0-4) /hpf Urine Bacteria (None) /hpf Urine Mucus (None) /hpf 05/05/24 05/05/24 Range/Units 13:05 14:01 WBC (3.8-10.6) k/uL RBC (3.80-5.40) m/uL Hgb (11.4-16.0) gm/dL Hct (34.0-46.0) % MCV (80.0-100.0) fL MCH (25.0-35.0) pg MCHC (31.0-37.0) g/dL RDW (11.5-15.5) % Plt Count (150-450) k/uL MPV Neutrophils % % Lymphocytes % % Monocytes % % Eosinophils % % Basophils % % Neutrophils # (1.3-7.7) k/uL Lymphocytes # (1.0-4.8) k/uL Monocytes # (0-1.0) k/uL Eosinophils # (0-0.7) k/uL Basophils # (0-0.2) k/uL PT (10.0-12.5) sec INR (<1.2) APTT (22.0-30.0) sec Sodium (137-145) mmol/L Potassium (3.5-5.1) mmol/L Chloride (98-107) mmol/L Carbon Dioxide (22-30) mmol/L Anion Gap mmol/L BUN (7-17) mg/dL Creatinine (0.52-1.04) mg/dL Est GFR (CKD-EPI)AfAm (>60 ml/min/1.73 sqM) Est GFR (CKD-EPI)NonAf (>60 ml/min/1.73 sqM) Glucose (74-99) mg/dL Calcium (8.4-10.2) mg/dL Total Bilirubin (0.2-1.3) mg/dL AST (14-36) U/L ALT (4-34) U/L Alkaline Phosphatase (38-126) U/L Creatine Kinase (30-135) U/L Troponin I <0.012 (0.000-0.034) ng/mL Total Protein (6.3-8.2) g/dL Albumin (3.5-5.0) g/dL Urine Color Colorless Urine Appearance Clear (Clear) Urine pH 7.0 (5.0-8.0) Ur Specific [place] 1.012 (1.001-1.035) Urine Protein Negative (Negative) Urine Glucose (UA) Negative (Negative) Urine Ketones Negative (Negative) Urine Blood Negative (Negative) Urine Nitrite Negative (Negative) Urine Bilirubin Negative (Negative) Urine Urobilinogen <2.0 (<2.0) mg/dL Ur Leukocyte Esterase Trace H (Negative) Urine RBC 1 (0-5) /hpf Urine WBC <1 (0-5) /hpf Ur Squamous Epith Cells 4 (0-4) /hpf Urine Bacteria Few H (None) /hpf Urine Mucus Rare H (None) /hpf Disposition Clinical Impression: Hemorrhagic stroke Disposition: OTHER INSTITUTION NOT DEFINED Condition: Serious Is patient prescribed a controlled substance at d/c from ED?: No Referrals: Pravin Stafford MD [Primary Care Provider] - 1-2 days Time of Disposition: 14:58 - Out of Hospital Transfer - Req. Specs Out of Hospital Transfer - Requested Specifics: Neurological ICU ([facility])
[2024-05-05] MEDS: niCARdipine 20 MG in SODIUM CHLORIDE 0.9% 192 ML IV SCH (14:08)
--- NOTE | 2024-05-05 14:13 | CT ---
EXAMINATION TYPE: CT brain wo con CT DLP: 1100.6 mGycm, Automated exposure control for dose reduction was used. DATE OF EXAM: 05/05/2024 1:56 PM COMPARISON: None. CLINICAL INDICATION:Female, 88 years old with history of Neuro deficit, acute, stroke suspected, for 1 week with slurred speech difficulty swallowing. Difficulty with right hand and c/o headache TECHNIQUE: Brain: Multiple axial CT images of the brain were obtained without IV contrast. . Coronal and sagitta l reformats reviewed. FINDINGS: Brain: Extra-axial spaces: No abnormal extra-axial fluid collections. Ventricular system: No hydrocephalus. There is some effacement of the fourth ventricle. Cerebral parenchyma: Focal region of low attenuation within the right parietal lobe with cortical hyp erdensity (series 21:42). The kraft-white junction is well differentiated. Scattered hypoattenuating a reas are seen within the white matter. Cerebellum: Patchy hyperdensity within the superior right cerebellum measuring up to 2.7 x 1.7 cm wit h surrounding low attenuation consistent with edema. Additional questionable hyperdensity identified within the midline cerebellum. Mass effect: No evidence of midline shift. Intracranial vasculature: Atherosclerotic calcifications of the intracranial vessels. Soft tissues: Normal. Calvarium/osseous structures: No depressed skull fracture. Paranasal sinuses and mastoid air cells: Clear. Hypoplastic appearance of the frontal sinuses. Visualized orbits: Bilateral aphakia. Bilateral scleral calcifications. IMPRESSION: 1. Acute patchy region of hemorrhage identified within the superior right cerebellum with surroundin g edema. Additional questionable region within the midline cerebellum. This causes effacement of the fourth ventricle. No hydrocephalus. Could be seen with hemorrhagic stroke with underlying neoplasm no t excluded. Recommend further evaluation with MRI brain with and without IV contrast. 2. Focal region of hypodensity within the right parietal lobe with cortical hyperdensity suggesting blood products and/or laminar necrosis. Findings suggest indeterminate age ischemic injury. Findings called to and discussed with Dr. Karis Cedeño at 2:10 PM on 05/05/2024. [facility], , 05/05/2024 2:10 PM
[2024-05-05 14:19] LABS: Appearance,Urine Clear (Clear); Bacteria,Urine Few /hpf; Bilirubin,Urine Negative (Negative); Blood,Urine Negative (Negative); Color,Urine Colorless; Glucose,Urine (UA) Negative (Negative); Ketones,Urine Negative (Negative); Leukocyte Esterase,Urine Trace (Negative); Mucus,Urine Rare /hpf; Nitrite,Urine Negative (Negative); Protein,Urine Negative (Negative); RBC,Urine 1 /hpf (0-5); Specific Gravity,Urine 1.012 (1.001-1.035); Squamous Epithelial Cell,Urine 4 /hpf (0-4); Urobilinogen,Urine <2.0 mg/dL (<2.0); WBC,Urine <1 /hpf (0-5)
--- NOTE | 2024-05-05 14:21 | CT ---
EXAMINATION TYPE: CT angio head neck CT DLP: 313.6 mGycm, Automated exposure control for dose reduction was used. DATE OF EXAM: 05/05/2024 2:10 PM COMPARISON: CT brain 05/05/2024. CLINICAL INDICATION:Female, 88 years old with history of Neuro deficit, acute, stroke suspected; PHH, for 1 week with slurred speech difficulty swallowing. Difficulty with right hand and c/o headache TECHNIQUE: Axially acquired helical CT angiogram of the head and neck was obtained with contrast util izing 75 cc of Isovue-370 administered intravenously. Axial images are supplemented with 3D reconstru ctions which were post-processed at an independent workstation. NASCET criteria used. FINDINGS: Please refer to dedicated CT brain of the same date for findings. CTA HEAD: The visualized portions of the internal carotid arteries, middle cerebral arteries, anterior cerebral arteries, and posterior cerebral arteries are patent. No abnormal contrast enhancement identified. The basilar and vertebral arteries are patent. CTA NECK: Right Carotid System: The common carotid artery and external carotid artery are patent. Minimal calcified plaque at the car otid bifurcation. The carotid bifurcation demonstrates no evidence of hemodynamically significant rod nosis. The remaining portions of the internal carotid artery demonstrate normal size without signific ant narrowing. Left Carotid System: The common carotid artery and external carotid artery are patent. Mild calcified plaque at the caroti d bifurcation. The carotid bifurcation demonstrates no evidence of hemodynamically significant stenos is. The remaining portions of the internal carotid artery demonstrate normal size without significant narrowing. Vertebral arteries are patent without evidence hemodynamically significant stenosis. Codominant verte bral arteries. There is a bovine aortic arch. The origins of the great vessels are patent. Mild atherosclerotic calc ification of the aortic arch and its branches. No evidence of hemodynamically significant stenosis. Centrilobular emphysematous changes. Calcified granulomas within the right upper lobe. Multilevel deg enerative changes of the cervical spine. IMPRESSION: 1. No evidence of dissection of the cervical internal carotid arteries or vertebral arteries or any e vidence of significant stenosis at the carotid bifurcations. 2. No evidence of high-grade stenosis or intracranial aneurysm. 3. COPD changes. [facility], , 05/05/2024 2:19 PM
[2024-05-05 18:24] VITALS: BP 137/62; PULSE 75; RESP 18; TEMP 98.8
== END 2024-05-05 18:30 | disposition other institution (70) ==
LOC: EC 11:52
DX: I61.9 Nontraumatic intracerebral hemorrhage, unspecified (principal); I10 Essential (primary) hypertension; Z88.0 Allergy status to penicillin; Z79.899 Other long term (current) drug therapy
CPT/HCPCS: 36415; 93005; 80053; 82550; 84484; 85025; 85610; 85730; 81001; 71046; 70496; 70450; 70498; 99291; 96365; 96366; Q9967

== ENCOUNTER → 2024-05-26 | Outpatient (CLI) | payer MEDICARE ==
--- NOTE | 2024-05-29 17:15 | PE ---
EXAMINATION TYPE: PET CT fusion skull to thigh DATE OF EXAM: 05/26/2024 CLINICAL INDICATION:Female, 88 years old with history of C34.31 LUNG CANCER; TECHNIQUE: Following the intravenous administration of 11.43 mCi of F-18 FDG, whole body images are performed from the skull base to the midthigh. Images are reviewed on the computer in the coronal, axial, and sagittal planes. Reconstructed rotating images are created on independent workstation and reviewed on the computer. A non-contrast CT is performed in conjunction with the PET scan. Glucose level 86 mg/dL CT DLP: 285 mGycm, Automated exposure control for dose reduction was used. COMPARISON: CT 05/06/2024, PET/CT None, MRI: None FINDINGS: Mediastinal SUV mean is 2.4. Hepatic parenchyma SUV mean is 2.7. SKULL BASE AND NECK: Defect within the right cerebellum compatible with MRI finding of enhancing mass. CHEST, MEDIASTINUM, AND HILAR REGION: * Patchy uptake in the right lung base consolidation max SUV 8.0.r area measures roughly 9.0 x 4.2 c m on axial imaging. * Right perihilar lymph node max SUV 5.0. Measurements difficult given lack of IV contrast. ABDOMEN AND PELVIS: No suspicious radiotracer activity. MUSCULOSKELETAL STRUCTURES: No suspicious radiotracer activity. OTHER CT: Bilaterally aphakia. Calcifications within the right breast with more masslike area measuring up to 1 8 mm without increased FDG activity likely masslike fibroglandular tissue. Atherosclerosis of the art erial vasculature calcifications present. Left hip arthroplasty changes appear intact. Heart is enlar ged for size. Right fat containing inguinal hernia. Scattered colonic diverticula. IMPRESSION: Right lower lung somewhat peripheral elongated uptake with some mild uptake within the right pulmonar y hilum lymph nodes. No evidence for distant suspicious FDG uptake. Consider bronchoscopy with tissue sampling given cut off of right lower lung airspace. Right cerebellar hemisphere mass with less FDG uptake compared to his side possibly due to cystic bubba nge. Attention on follow-up MRIs. [facility], , 05/29/2024 5:13 PM
== END | disposition home or self-care (01) ==
LOC: RADPETMAIN 10:02
PROVIDERS: ATTEND Internal Medicine Hematology & Oncology
DX: C34.31 Malignant neoplasm of lower lobe, right bronchus or lung (principal)
CPT/HCPCS: 78815; A9552

== ENCOUNTER 2024-06-16 09:10 | Day surgery (SDC) | payer MEDICARE ==
[2024-06-15 08:38] VITALS: BMI 20.8
[2024-06-16] MEDS: IV FLUID CONTINUATION 1,000 ML IV ONE (10:14)
[2024-06-16] MEDS: LACTATED RINGERS 1,000 ML IV SCH (10:15)
[2024-06-16] MEDS: ONDANSETRON 4 MG/2 ML VIAL IVP STA (10:16)
--- NOTE | 2024-06-16 10:17 | CT ---
EXAMINATION TYPE: CT Chest wo ION protocol DATE OF EXAM: 06/16/2024 COMPARISON: PET CT 05/26/[address] chest abdomen pelvis 05/06/2024 CLINICAL INDICATION: Female, 88 years old with history of R91.8 nonspecific abnormal finding of lung field; PHH, pre bronchial navigation TECHNIQUE: CT scan of the thorax is performed without IV contrast. CT DLP: 160.3 mGycm Automated exposure control for dose reduction was used. FINDINGS: LUNGS: Biapical pleural-parenchymal scarring. Moderate centrilobular emphysematous changes. Scattered calcified granulomas. Minimal scattered subpleural pulmonary fibrotic changes. Most pronounced withi n the right middle lobe. Patchy reticular opacity within the superior segment of the left lower lobe. Large right lower lobe lobulated solid pulmonary mass measuring grossly 4.5 x 7.6 x 5.2 cm in AP, TV , CC dimensions. This is FDG avid on prior PET/CT. Stable tiny few scattered pulmonary micronodules. No pneumothorax. Trace right pleural effusion. The tracheobronchial tree is patent. MEDIASTINUM: Lack of IV contrast is noted to limit evaluation for mediastinal and especially hilar ad enopathy. Bulky right hilar adenopathy measuring up to 1.9 cm. Enlarged subcarinal lymph node measuri ng 1.5 cm short axis. These are mildly FDG avid on prior PET/CT. Calcified granulomas within the medi astinum and bilateral edven. Mild cardiomegaly. No pericardial effusion. Moderate three-vessel coronar y calcifications. Small aortic valvular calcifications. Atherosclerotic calcification of the aorta an d its branches. OTHER: Calcified granulomas within the spleen. Multilevel degenerative changes of the thoracic spine. No aggressive osseous lesion. No acute fracture. Scattered coarse calcifications within both breasts . Postsurgical changes with dystrophic calcifications surgical clips within the posterior right breas t with adjacent 1.7 cm lesion. IMPRESSION: 1. Large right lower lobe 7.6 cm solid pulmonary mass highly concerning for malignancy until proven o therwise. 2. Right hilar mediastinal adenopathy likely representing metastatic disease identified otherwise. 3. Postsurgical changes within the right breast with a 1.7 cm masslike lesion in this region. Correla te with prior breast imaging. 4. Moderate COPD changes. 5. Trace right pleural effusion. 6. Sequelae of prior granulomatous disease. [facility], , 06/16/2024 10:15 AM
[2024-06-16] MEDS: ENALAPRILAT 1.25 MG/ML 1 ML VIAL IVP PRN (10:18)
[2024-06-16] MEDS: DEXAMETHASONE SOD PHOSPHATE 4 MG/ML 1 ML VIAL IVP STA (10:22)
[2024-06-16] MEDS ORDERED: LIDOCAINE 2% (PF) 20 MG/ML 5 ML VIAL ONE (10:30)
[2024-06-16] MEDS ORDERED: LIDOCAINE 4% LTA KIT (4 ML) TOPICAL ONE (10:30)
[2024-06-16] MEDS ORDERED: fentaNYL (PF) 50 MCG/ML 2 ML AMP ONE (10:30)
[2024-06-16] MEDS ORDERED: GLYCOPYRROLATE 0.2 MG/ML 2 ML VIAL ONE (10:30)
[2024-06-16] MEDS ORDERED: PROPOFOL 10 MG/ML 20 ML VIAL IV ONE (10:30)
[2024-06-16] MEDS ORDERED: NEOSTIGMINE 1 MG/ML 10 ML VIAL ONE (10:30)
[2024-06-16] MEDS ORDERED: ROCURONIUM 10 MG/ML (5 ML VIAL) IV ONE (10:30)
[2024-06-16] MEDS ORDERED: SUCCINYLCHOLINE CHLORIDE 200 MG/10 ML VIAL IV ONE (10:30)
--- NOTE | 2024-06-16 11:47 | FL ---
EXAMINATION TYPE: FL bronchoscopy DATE OF EXAM: 06/16/2024 FLUOROSCOPY 1:20 SEC FLUORO, DAP 3.4600 Gycm2, RLL BRONCHOSCOPY WITH BIOPSIES 7 images are submitted. [facility], Workstation: [id number], 06/16/2024 11:45 AM
--- NOTE | 2024-06-16 11:53 | P.PCN ---
Date of Procedure: 06/16/24 Operative Findings: Preoperative Diagnosis: Right lower lobe mass Postoperative Diagnosis: Right lower lobe mass Procedure(s) Performed: Flexible bronchoscopy Robotic-assisted bronchoscopy and addition to radial ultrasound evaluation of the right lower lobe mass Robotic-assisted transbronchial transbronchial needle aspirate, transbronchial biopsies and transbronchial brushing endobronchial lavage of the right lower lobe mass Endobronchial ultrasound Transbronchial needle aspirate of station 7 and 11R lymph node Anesthesia: RANI Surgeon: Luana Guidry Estimated Blood Loss (ml): 0 Pathology: other Condition: stable Disposition: same day Operative Findings: A physical exam was performed. Informed consent was obtained from the patient after explaining all the risks (pneumothorax, life threatening bleeding, infection and adverse effects due to medications), benefits and alternatives to the procedure which the patient appeared to understand and so stated. The patient was connected to the monitoring devices. General anesthesia was induced and the patient was intubated by anesthesia. A final timeout was performed and the procedure confirmed by the attending staff bronchoscopist. The bronchoscope was inserted and the airway examined. Airway examination shows that the distal trachea, Right upper lobe and middle lobe and lower lobe bronchi was all within normal limits. The posterior segment and subsegments of the right lower lobe was eccentrically compressed. Patient left mainstem bronchus is within normal limits. Examination of left lower lobe was within normal limits. The left upper lobe bronchus and the lingular segment was also patent within normal limits. The flexible bronchoscope was removed and the robotic bronchoscope was inserted. Registration was completed. I next guided the robotic bronchoscope using the navigation system into the right lower lobe mass. Once in proper position, the bronchoscope was frozen. The radial EBUS probe was placed through the bronchoscope and confirmed abnormal u/s images vs normal lung. A needle was placed through the working channel and another fluoroscopic guidance, we sampled the area in the right lower lobe where the opacity was present. We then used a cloud biopsy pattern with ultrasound confirmation for 2 additional passes with the needle. Following that, a forceps were next introduced through working channel and extended the appropriate dista nce and 4 transbronchial biopsies were performed using fluoroscopic guidance. The u/s probe was then reinserted to confirm location. When confirmed this process was repeated for a total of 8-10 transbronchial biopsies. After reassessment with EBUS, a brush was placed through the extendable working channel for 1 pass with fluoroscopic guidance. U/S evaluation was then used to confirm location. Following that, using fluoroscopic guidance, endobronchial brushing of the right lower lobe mass was done. Subsequently, bronchial lavage of the right lower lobe was done. A total of 40 cc of saline was infused into the right lower lobe and approximately 8 to 10 cc of saline was aspirated and the bronchial lavage was sent for cytologic evaluation. Following that, I am bronchoscope was removed. The endobronchial ultrasound was inserted and a full evaluation of the mediastinal lymph nodes was done. Upon careful investigation with endobronchial ultrasound, a 1.5 cm station 7 lymph node and a 1 cm station 11R lymph node was identified. Using a 22-gauge position needle, transbronchial needle aspirate of the right paratracheal station 7 and station 11 R lymph node was done and a total of 4 passes was taken without any complications. Endobronchial ultrasound was removed. Note that rest of the mediastinal stations showed no additional significant pathologic mediastinal lymphadenopathy. Flex. bronchoscope was inserted and regular suctioning was done. At the completion of the procedure, no residual secretions or bloody material within the airway. The bronchoscope was removed. The patient was extubated. FINDINGS: 1.The airways appeared normal 2 Successful navigation, ultrasonographic identification, and biopsies of right lower lobe mass. 3.The the radial ultrasound view was concentric 4. Endobronchial ultrasound and station 7 and station 11R lymph nodes identified and biopsied RECOMMENDATIONS: Await pathology and cytology results The referring physician will be alerted to the results when available. The patient was advised to follow up with the referring physician with the biopsy results Patient will be called with results.
[2024-06-16 12:02] VITALS: TEMP 97.1
--- NOTE | 2024-06-16 12:15 | XR ---
EXAMINATION TYPE: XR chest 1V DATE OF EXAM: 06/16/2024 COMPARISON: 05/05/2024 CLINICAL INDICATION: Female, 88 years old with history of Postbiopsy; TECHNIQUE: Single frontal view of the chest is obtained. FINDINGS: No medial right basilar masslike opacity. Some surrounding patchy density may reflect post biopsy change. No pneumothorax. Heart upper limits of normal in size. IMPRESSION: Masslike opacity medial right base. Some surrounding patchy density may reflect postbiopsy changes. N o pneumothorax. [facility], , 06/16/2024 12:13 PM
[2024-06-16 12:58] VITALS: BP 164/66; PULSE 61; RESP 18
== END 2024-06-16 13:31 | disposition home or self-care (01) ==
LOC: ORWHC2ENDO 09:10
PROVIDERS: ATTEND Internal Medicine Critical Care Medicine
DX: C34.31 Malignant neoplasm of lower lobe, right bronchus or lung (principal); I10 Essential (primary) hypertension; E78.5 Hyperlipidemia, unspecified; M19.90 Unspecified osteoarthritis, unspecified site; G43.909 Migraine, unspecified, not intractable, without status migrainosus; Z85.3 Personal history of malignant neoplasm of breast; Z79.899 Other long term (current) drug therapy; Z88.1 Allergy status to other antibiotic agents
CPT/HCPCS: 88108; 88305; 87070; 87205; 87116; 87102; 87206; 71045; 71250; 31628; 31629; 31623; 31624; 31652; J0330; J1100; J2710; J2405; J3010; J2704; J2003; J1596; S2900; 88341; 88342

== ENCOUNTER → 2024-07-29 | Outpatient (CLI) | payer MEDICARE ==
--- NOTE | 2024-07-29 19:45 | MR ---
INDICATION: Patient age:Female; 88 years old; Reason for study: C79.31 SECONDARY MALIGNANT NEOPLASM OF BRAIN; PHH. COMPARISON: PET/CT 05/26/2024, MRI brain 05/06/2024, CT head 05/05/2024. TECHNIQUE: Multi planar, multi sequence imaging was performed through the brain. The patient was then given 5 cc of Gadobutrol intravenously and multi planar, T1 fat-saturation images were obtained. FINDINGS: The kraft-white junctions and basal cisterns appear unremarkable. Diffusion-weighted imaging shows no evidence of restricted diffusion to suggest acute/subacute infarct. Redemonstration of bilobed appearing peripherally enhancing mass with some internal enhancement withi n the right cerebellum measuring 3.4 x 2.1 x 1.8 cm (series 801, image 53). There is surrounding FLAI R hyperintense vasogenic edema which crosses midline. Previously measured 3.5 x 1.9 cm. There is some mass effect upon the fourth ventricle with abutment of the right tentorium cerebelli. Blooming artif act within the lesion consistent with hemosiderin deposition from hemorrhage with corresponding T1 hy perintensity. No hydrocephalus. Additional ring-enhancing lesion within the posterior right frontal l obe measuring 1.2 x 0.8 x 1.0 cm with surrounding FLAIR hyperintense vasogenic edema (series 801, jaime ge 130). Previously measured 1.1 x 0.7 cm. No new suspicious enhancing cerebral masses. Intracranial arterial flow voids are maintained. Midline structures show no abnormality. Similar patc hy areas of high T2/FLAIR signal intensity are seen within the supratentorial subcortical and periven tricular white matter. The bone marrow signal is within normal limits. The paranasal sinuses are unremarkable. Bilateral ap hakia. IMPRESSION: 1. Similar enhancing masses within the right cerebellum and right frontal lobe with vasogenic edema f rom prior MR 05/06/2024. No new suspicious lesions. The dominant right cerebellar mass demonstrates i nternal hemorrhage. These are favored to represent metastasis in the setting of lung cancer. 2. Similar nonspecific white matter changes likely related to chronic small vessel ischemic disease w ithout corresponding enhancement. [facility], , 07/29/2024 7:43 PM
== END | disposition home or self-care (01) ==
LOC: RADMRIMAIN 18:28
PROVIDERS: ATTEND Radiology Radiation Oncology
DX: C79.31 Secondary malignant neoplasm of brain (principal); G93.9 Disorder of brain, unspecified; C34.31 Malignant neoplasm of lower lobe, right bronchus or lung; R90.82 White matter disease, unspecified; C77.1 Secondary and unspecified malignant neoplasm of intrathoracic lymph nodes
CPT/HCPCS: 70553; A9585

== ENCOUNTER → 2024-12-01 | Outpatient (CLI) | payer MEDICARE ==
--- NOTE | 2024-12-01 12:41 | MR ---
EXAMINATION TYPE: MR brain wo/w con DATE OF EXAM: 12/01/2024 12:03 PM COMPARISON: 07/29/2024. 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 The patient was then given intravenous contrast and multi planar, T1 fat-saturation images wer e obtained. IV Contrast: 5ML mL Gadobutrol FINDINGS: The kraft-white junctions and basal cisterns appear unremarkable. Diffusion-weighted imaging shows no evidence of restricted diffusion to suggest acute/subacute infarct. Redemonstration of bilobed appearing peripherally enhancing mass with some internal enhancement withi n the right cerebellum measuring r smaller 2.9 x 1.8 cm previously 3.8 x 2.1 cm with thicker peripher al enhancement. There is surrounding FLAIR hyperintense vasogenic edema which crosses midline. There is some mass effect upon the fourth ventricle with abutment of the right tentorium cerebelli. Bloomin g artifact within the lesion consistent with hemosiderin deposition from hemorrhage with correspondin g T1 hyperintensity. No hydrocephalus. Additional ring-enhancing lesion within the posterior right frontal lobe measuring measuring 0.9 x 0. 7 cm previously 12 x 8 mm with surrounding FLAIR hyperintense vasogenic edema. Lastly there is a 3 mm focus of enhancement within the right occipital lobe series 8 on image 67. Whi ch is stable from prior. Intracranial arterial flow voids are maintained. Midline structures show no abnormality. Similar patc hy areas of high T2/FLAIR signal intensity are seen within the supratentorial subcortical and periven tricular white matter. The bone marrow signal is within normal limits. The paranasal sinuses are unremarkable. Bilateral ap hakia. IMPRESSION: 1. Decrease in size of right cerebellum and right frontal lobe lesions. No new lesions identified. No new suspicious lesions. 2. Similar nonspecific white matter changes likely related to chronic small vessel ischemic disease w ithout corresponding enhancement. [facility], , 12/01/2024 12:38 PM
== END | disposition home or self-care (01) ==
LOC: RADMRIMAIN 11:01
PROVIDERS: ATTEND Radiology Radiation Oncology
DX: C79.31 Secondary malignant neoplasm of brain (principal); C34.31 Malignant neoplasm of lower lobe, right bronchus or lung; C77.1 Secondary and unspecified malignant neoplasm of intrathoracic lymph nodes; R90.82 White matter disease, unspecified
CPT/HCPCS: 70553; A9585